=== PATIENT | male | born 1980 | race Hispanic/Latino ===

== ENCOUNTER 2016-03-09 10:23 | Emergency (ER) | payer BC ==
[2016-03-09] MEDS ORDERED: TORADOL IV ONE (10:31)
[2016-03-09] MEDS ORDERED: ZOFRAN IV ONE (10:31)
--- NOTE | 2016-03-09 10:36 | Emergency Department Report ---
Chief Complaint: Abdominal Pain Stated Complaint: POSS KIDNEY STONES Time Seen by Provider: 03/09/16 10:33 - HPI History of Present Illness: Patient is a 35 y.o male who presents due to left flank pain x 30 minutes ago. Patient also admits of vomiting. - ROS Review of Systems: patient denied any fever, chills, dysuria, hematuria - Exam Physical Exam: left flank tenderness MSE screening note: Focused history and physical exam performed. Due to findings the following was ordered: ED Disposition for MSE Condition: Stable
[2016-03-09 10:41] VITALS: BP 145/95
[2016-03-09 13:17] LABS: Bilirubin,Urine NEG (Negative); Blood,Urine LG (Negative); Ketones,Urine NEG (Negative); Leukocyte Esterase,Urine NEG (Negative); Nitrite,Urine NEG (Negative); Protein,Urine <15 mg/dL mg/dL (Negative); Urobilinogen,Urine < 2.0 mg/dL (<2.0); WBC,Urine < 1.0 /HPF (0.0-6.0)
--- NOTE | 2016-03-09 20:13 | ED Elopement Review ---
ED Pt Elopement review - Results review Lab results: Laboratory Tests 03/09/16 13:00 Urine Color Yellow Urine Turbidity Clear Urine pH 6.0 Ur Specific [place] 1.005 Urine Protein <15 mg/dl Urine Glucose (UA) Neg Urine Ketones Neg Urine Blood Lg Urine Nitrite Neg Urine Bilirubin Neg Urine Urobilinogen < 2.0 Ur Leukocyte Esterase Neg Urine WBC (Auto) < 1.0 Urine RBC (Auto) 56.0 U Epithel Cells (Auto) < 1.0 - Call Back decision Pt Call Back Decision: No action required
== END 2016-03-09 13:00 | disposition left against medical advice (07) ==
LOC: ED 10:23
DX: R10.9 Unspecified abdominal pain (principal); R11.10 Vomiting, unspecified; Z53.21 Procedure and treatment not carried out due to patient leaving prior to being seen by health care provider
CPT/HCPCS: 81001; 96374; 96375; J1885; J2405

== ENCOUNTER 2017-11-10 08:29 | Emergency (ER) | payer BC, OTHER ==
[2017-11-10] MEDS ORDERED: NACL 0.9% 1000 ML 1,000 ML IV ONE (08:41)
[2017-11-10] MEDS ORDERED: TORADOL IV ONE (08:41)
[2017-11-10] MEDS ORDERED: ZOFRAN IV ONE (08:41)
[2017-11-10 08:51] LABS: Basophils # (Auto) 0.1 K/mm3 (0.0-0.1); Basophils % (Auto) 0.7 % (0.0-1.8); Eosinophils # (Auto) 0.1 K/mm3 (0.0-0.4); Eosinophils % (Auto) 0.7 % (0.0-4.3); Hematocrit 45.8 % (35.5-45.6); Hemoglobin 15.4 gm/dl (11.8-15.2); Lymphocytes # (Auto) 3.1 K/mm3 (1.2-5.4); Lymphocytes % (Auto) 31.7 % (13.4-35.0); Mean Corpuscular HGB Conc 34 % (32-34); Mean Corpuscular Hemoglobin 31 pg (28-32); Mean Corpuscular Volume 92 fl (84-94); Monocytes % (Auto) 10.3 % (0.0-7.3); Platelet Count 296 K/mm3 (140-440); Red Cell Distribution Width 13.1 % (13.2-15.2)
--- NOTE | 2017-11-10 08:51 | Emergency Department Report ---
Blank Doc - Documentation Documentation: 37-year-old male with a history of kidney stones presents to ED with left flank pain since this morning. Reports pain is radiating into groin. Pt denies hematuria and dysuria, reports N/V. Will check blood work, UA and obtain CT scan. Will medicate with IV fluids, Toradol, Zofran.
--- NOTE | 2017-11-10 09:02 | Emergency Department Report ---
ED Abdominal Pain HPI - General Chief Complaint: Abdominal Pain Stated Complaint: KIDNEY STONE Time Seen by Provider: 11/10/17 08:35 Source: patient Mode of arrival: Ambulatory Limitations: No Limitations - History of Present Illness Initial Comments: This is a 37-year-old male nontoxic, well nourished in appearance, no acute signs of distress presents to the ED with c/o of nausea and vomiting and left flank pain1 day. Patient stated has chronic kidney stones and symptoms are similar. Patient stated pain radiates to groin area. Patient denies chest pain , short of breath, fever, chills, headache, stiff neck, numbness or tingling. Patient denies any diarrhea or constipation. Patient denies any recent travels. Patient stated allergies to Promethazine. PMH includes kidney stones. MD Complaint: flank pain Location: L flank Radiation: other Migration to: no migration Severity: mild Severity scale (0 -10): 8 Quality: aching Consistency: constant Improves With: nothing Worsens With: nothing Associated Symptoms: nausea, vomiting. denies: diarrhea, fever, chills, constipation, dysuria, hematemesis, hematochezia, melena, hematuria, anorexia, syncope - Related Data Home Medications Medication Instructions Recorded Confirmed Last Taken Ketorolac [Toradol] 10 mg PO Q6H PRN 03/09/16 03/09/16 03/09/16 Ondansetron [Zofran Odt] 4 mg PO Q8HR 03/09/16 03/09/16 03/09/16 Oxycodone HCl/Acetaminophen 1 each PO Q6HR PRN 03/09/16 03/09/16 03/09/16 [Percocet 7.5/325 mg] Previous Rx's Medication Instructions Recorded Last Taken Type Acetaminophen/Codeine [Tylenol 1 tab PO Q6H PRN #12 tab 11/10/17 Unknown Rx /Codeine # 3 tab] HYDROcodone/ACETAMINOPHEN [[place] 1 each PO Q6H PRN #12 tablet 11/10/17 Unknown Rx 7.5-325 Tablet] Ketorolac [Toradol] 10 mg PO Q6H PRN #12 tablet 11/10/17 Unknown Rx Ondansetron [Zofran Odt] 4 mg PO Q8HR PRN #20 tab.rapdis 11/10/17 Unknown Rx Allergies Allergy/AdvReac Type Severity Reaction Status Date / Time promethazine HCl Allergy Unknown Verified 03/09/16 10:37 [From Phenergan] ED Review of Systems ROS: Stated complaint: KIDNEY STONE Other details as noted in HPI Constitutional: denies: chills, fever Eyes: denies: eye pain, eye discharge, vision change ENT: denies: ear pain, throat pain Respiratory: denies: cough, shortness of breath, wheezing Cardiovascular: denies: chest pain, palpitations Endocrine: no symptoms reported Gastrointestinal: nausea, vomiting, other (left flank pain). denies: abdominal pain, diarrhea Genitourinary: denies: urgency, dysuria Musculoskeletal: denies: back pain, joint swelling, arthralgia Skin: denies: rash, lesions Neurological: denies: headache, weakness, paresthesias Psychiatric: denies: anxiety, depression Hematological/Lymphatic: denies: easy bleeding, easy bruising ED Past Medical Hx - Past Medical History Previous Medical History?: Yes Hx Kidney Stones: Yes - Surgical History Past Surgical History?: Yes Hx Appendectomy: Yes Additional Surgical History: lithotripsy x 5. Kidney stent - Social History Smoking Status: Never Smoker Substance Use Type: None - Medications Home Medications: Home Medications Medication Instructions Recorded Confirmed Last Taken Type Ketorolac [Toradol] 10 mg PO Q6H PRN 03/09/16 03/09/16 03/09/16 History Ondansetron [Zofran Odt] 4 mg PO Q8HR 03/09/16 03/09/16 03/09/16 History Oxycodone HCl/Acetaminophen 1 each PO Q6HR PRN 03/09/16 03/09/16 03/09/16 History [Percocet 7.5/325 mg] Acetaminophen/Codeine [Tylenol 1 tab PO Q6H PRN #12 tab 11/10/17 Unknown Rx /Codeine # 3 tab] HYDROcodone/ACETAMINOPHEN [[place] 1 each PO Q6H PRN #12 tablet 11/10/17 Unknown Rx 7.5-325 Tablet] Ketorolac [Toradol] 10 mg PO Q6H PRN #12 tablet 11/10/17 Unknown Rx Ondansetron [Zofran Odt] 4 mg PO Q8HR PRN #20 tab.rapdis 11/10/17 Unknown Rx ED Physical Exam - General Limitations: No Limitations General appearance: alert, in no apparent distress - Head Head exam: Present: atraumatic, normocephalic - Eye Eye exam: Present: normal appearance - ENT ENT exam: Present: normal exam, mucous membranes moist - Neck Neck exam: Present: normal inspection, full ROM. Absent: tenderness, meningismus - Respiratory Respiratory exam: Present: normal lung sounds bilaterally. Absent: respiratory distress, wheezes, rales, rhonchi, stridor, chest wall tenderness, accessory muscle use, decreased breath sounds, prolonged expiratory - Cardiovascular Cardiovascular Exam: Present: regular rate, normal rhythm, normal heart sounds. Absent: irregular rhythm, systolic murmur, diastolic murmur, rubs, gallop - GI/Abdominal GI/Abdominal exam: Present: soft, normal bowel sounds. Absent: distended, tenderness, guarding, rebound, rigid, diminished bowel sounds - Expanded GI/Abdominal Exam Expanded GI/Abdominal exam: Absent: psoas sign, Jalloh's sign, Rovsing's sign, tenderness at [place]bur[place]'s Point, ascites - Rectal Rectal exam: Present: deferred - Extremities Exam Extremities exam: Present: normal inspection, full ROM, normal capillary refill. Absent: tenderness - Back Exam Back exam: Present: normal inspection, full ROM, CVA tenderness (L). Absent: tenderness, CVA tenderness (R), muscle spasm, paraspinal tenderness, vertebral tenderness, rash noted - Neurological Exam Neurological exam: Present: alert, oriented X3, normal gait - Psychiatric Psychiatric exam: Present: normal affect, normal mood - Skin Skin exam: Present: warm, dry, intact, normal color. Absent: rash ED Course Vital Signs 11/10/17 11/10/17 11/10/17 08:31 09:29 09:55 Temperature 98.5 F Pulse Rate 91 H Respiratory 18 16 18 Rate Blood Pressure 148/111 O2 Sat by Pulse 100 Oximetry 11/10/17 11/10/17 09:57 10:16 Temperature Pulse Rate Respiratory 18 18 Rate Blood Pressure O2 Sat by Pulse Oximetry - Reevaluation(s) Reevaluation #1: 11/10/17 08:58 Patient is speaking in full sentences with no signs of distress. - Consultations Consultation #1: 11/10/17 09:02 Patient has been consulted with Ok Fishman about patient history, physical exam and examined and screened patient and agrees to ED plan of care. Consultation #2: 11/10/17 09:31 CT results has been consulted with Dr. King (radiologist) and stated that the stones are tiny measuring about 1-2 cm with no obstruction. ED Medical Decision Making - Lab Data Result diagrams: 11/10/17 08:44 11/10/17 08:44 - Medical Decision Making This is a 37-year-old male that presents with bilateral kidney stones. Patient is stable and was examined by me and Dr. Lynne. Negative signs of symptoms of appendicitis. Labs obtained. UA obtained. CT without contrast of abdomen obtained and dictated by the radiologist. Patient is notified of the report with no questions noted by the patient. Vital signs are stable prior to discharge. Patient received treatment in the ED with stated symptoms has resolved and subsided. Family is present at bedside and stated will drive the patient home after discharge. A by mouth challenge has been obtained and patient tolerated well with no nausea vomiting. Patient was also instructed to Follow-up with a primary care doctor in 3-5 days or if symptoms worsen and continue return to emergency room as soon as possible. At time of discharge, the patient does not seem toxic or ill in appearance. No acute signs of distress noted. Patient agrees to discharge treatment plan of care. No further questions noted by the patient. Patient stated Tylenol #3 does not work for his pain. Patient is requesting norco. Critical care attestation.: If time is entered above; I have spent that time in minutes in the direct care of this critically ill patient, excluding procedure time. ED Disposition Clinical Impression: Bilateral kidney stones Disposition: DC-01 TO HOME OR SELFCARE Is pt being admited?: No Does the pt Need Aspirin: No Condition: Stable Instructions: Acetaminophen/Codeine (By mouth), Ketorolac (By mouth), Kidney Stones (ED) Additional Instructions: Follow-up with a primary care doctor in 3-5 days or if symptoms worsen and continue return to emergency room as soon as possible. Do not operate any machinery while taking Tylenol with codeine as this may cause drowsiness. Prescriptions: Acetaminophen/Codeine [Tylenol /Codeine # 3 tab] 1 tab PO Q6H PRN #12 tab PRN Reason: Pain , Severe (7-10) HYDROcodone/ACETAMINOPHEN [[place] 7.5-325 Tablet] 1 each PO Q6H PRN #12 tablet PRN Reason: Pain , Severe (7-10) Ketorolac [Toradol] 10 mg PO Q6H PRN #12 tablet PRN Reason: Pain Ondansetron [Zofran Odt] 4 mg PO Q8HR PRN #20 tab.rapdis PRN Reason: Nausea Referrals: PRIMARY CARE, [Primary Care Provider] - 3-5 Days ROMULO PATTERSON MD [Staff Physician] - 3-5 Days [facility] [Outside] - 3-5 Days [facility] [Outside] - 3-5 Days Forms: Work/School Release Form(ED)
[2017-11-10 09:08] LABS: BUN/Creatinine Ratio 17; Blood Urea Nitrogen 12 mg/dL (9-20); Hemolysis Index 56
[2017-11-10 09:15] LABS: Bilirubin,Urine NEG (Negative); Blood,Urine LG (Negative); Color,Urine Straw (Yellow); Protein,Urine <15 mg/dL mg/dL (Negative); Urobilinogen,Urine < 2.0 mg/dL (<2.0)
--- NOTE | 2017-11-10 09:21 | Cat Scan Report ---
CT ABDOMEN PELVIS WITHOUT CONTRAST: HISTORY: Left flank pain. COMPARISON: none. TECHNIQUE: Helical CT in 1.25mm intervals without IV contrast. Sagittal and coronal reconstructions. FINDINGS: Lung bases: Normal. Liver: Normal. Biliary system: Normal. Pancreas: Normal. Spleen: Normal. Kidneys/ureters/bladder: Multiple bilateral punctate calyceal stones are identified in both kidneys. Approximately 6-8 stones are identified bilaterally. The ureters and bladder are unremarkable. No evidence for cystic disease, mass or hydronephrosis. Adrenal glands: Normal. Aorta: Normal. Intestines: Normal. Appendix: Not identified, correlate with surgical history. Ascites: None. Adenopathy: None. Musculoskeletal: Normal. IMPRESSION: Bilateral calyceal stones. No hydronephrosis.
[2017-11-10] MEDS ORDERED: MORPHINE IV ONE (09:40)
[2017-11-10] MEDS ORDERED: BENADRYL PO ONE ×2 (10:04→10:06)
[2017-11-10 10:42] VITALS: BP 140/90
== END 2017-11-10 10:39 | disposition home or self-care (01) ==
LOC: ED 08:29
DX: N20.0 Calculus of kidney (principal); Z90.49 Acquired absence of other specified parts of digestive tract; Z88.1 Allergy status to other antibiotic agents
CPT/HCPCS: 36415; 74176; 80048; 81001; 85025; 96361; 96374; 96375; 99284; J1885; J2270; J2405; J7030